=== PATIENT | female | born 1970 | race Caucasian/White ===

== ENCOUNTER 2022-05-29 08:00 | Outpatient (CLI) | payer OTHER | END 2022-05-29 23:58 | disposition home or self-care (01) | LOC: LAB.N 08:00 | PROVIDERS: ATTEND Family Medicine | DX: R30.0 Dysuria (principal) | CPT/HCPCS: 87086; 87181 ==

== ENCOUNTER 2023-03-04 08:00 | Outpatient (CLI) | payer OTHER | END 2023-03-04 23:59 | disposition home or self-care (01) | LOC: LAB.N 08:00 | PROVIDERS: ATTEND Nurse Practitioner | DX: R30.0 Dysuria (principal) | CPT/HCPCS: 87086 ==